=== PATIENT | male | born 1965 | race Caucasian/White ===

== ENCOUNTER 2025-09-23 18:39 | Emergency (ER) | payer OTHER, SELFPAY ==
--- OUTSIDE RECORDS SUMMARY | 2025-09-18 23:59 | XMS_ITS | Continuity of Care Document ---
Author Organization [facility] Address [address] [place] [address]- Care Team Providers Care Range Ecologist Name Role Phone Barbie JOHNS, Mendez Castillo Primary Care Physician [phone] Encounter [facility] [place] Date(s): 08/19/25 - 09/18/25 [facility] [address] [place] [address]- Encounter Type: Triage Allergies, Adverse Reactions, Alerts No Known Allergies Immunizations Given and Recorded Vaccine Date Status Refusal Reason SARS-CoV-2 (COVID-19) mRNA-1273 vaccine 10/14/21 R ecorded SARS-CoV-2 (COVID-19) Ad26 vaccine 03/19/21 Given tetanus/diphtheria/pertussis, acel(Tdap) 08/23/12 Given tetanus/diphtheria/pertussis, acel(Tdap) 06/14/10 Recorded Medications amLODIPine 5 mg oral tablet 1 tablet, By Mouth, Daily, # 90 tablet, 0 Refills, Maintenance, 07/12/25 6:23:00 PM EDT, [facility]/pharmacy #[id number], Please ask pt to keep scheduled appointment for any further refills., 172, cm, 05/09/24 11:08:00 EDT, Height Start Date: 07/12/25 Status: Ordered Medication Dispense Status: Completed Quantity: 90.0 Unit: tablet Total Allowed Fills: 1 Fills Dispensed: 0 atorvastatin 40 mg oral tablet 1 tablet, By Mouth, Daily, # 90 tablet, 0 Refills, Maintenance, 07/12/25 6:23:00 PM EDT, [facility]/pharmacy #[id number], Please ask pt to keep scheduled appointment for any further refills., 172, cm, 05/09/24 11:08:00 EDT, Height Start Date: 07/12/25 Status: Ordered Medication Dispense Status: Completed Quantity: 90.0 Unit: tablet Total Allowed Fills: 1 Fills Dispensed: 0 Freestyle Lite Test Strips See Instructions, # 600 each, Refills 5, Tot. Refills 5, Maintenance, Use as directed for Type 2 Diabetes Mellitus ICD 10 E1165 R73.9 Check Blood sugar Twice daily Length of need Lifetime Height 172cm Weight 260lbs, 10/12/23 10:31:00 AM EST, Supply, 172, cm, 10/12/23 10:15:00 EST, Height Start Date: 10/12/23 Stop Date: 04/04/25 Status: Ordered Medication Dispense Status: Completed Quantity: 600.0 Unit: each Total Allowed Fills: 6 Fills Dispensed: 0 Indications: Type 2 diabetes mellitus with hyperglycemia; hydrochlorothiazide 25 mg oral tablet 1, tablet, By Mouth, Daily, # 90 tablet, Refills 3, Maintenance, 09/10/25 12:13:00 AM EST, Route toPharmacy Electronically, [id number], 172, cm, 05/09/24 11:08:00 EDT, Height Start Date: 09/10/25 Status: Ordered Medication Dispense Status: Completed Quantity: 90.0 Unit: tablet Total Allowed Fills: 1 Fills Dispensed: 0 losartan 100 mg oral tablet 1 tablet = 100 mg, By Mouth, Daily, # 90 tablet, 1 Refills, Maintenance, 04/28/25 3:23:00 PM EDT, Tablet, [facility]/pharmacy #[id number], Partial fill upon patient request if the prescription is for a schedule II opioid drug. Dosage increase, 172, cm, 05/09/24 11:08:00 EDT, Height Start Date: 04/28/25 Status: Ordered Medication Dispense Status: Completed Quantity: 90.0 Unit: tablet Total Allowed Fills: 2 Fills Dispensed: 0 Indications: Essential (primary) hypertension; Ozempic (1 mg dose) 4 mg/3 mL subcutaneous solution See Instructions, INJECT 1 MG SUBCUTANEOUS INJECTION EVERY WEEK, INCREASE IN DOSE, # 3 Unknown, 5 Refills, Maintenance, 04/14/25 12:33:00 PM EDT, [id number], 172, cm, 05/09/24 11:08:00 EDT, Height Start Date: 04/14/25 Status: Ordered Medication Dispense Status: Completed Quantity: 3.0 Unit: Unknown Total Allowed Fills: 1 Fills Dispensed: 0 Problem List Condition Confirmation Course Effective Dates Status Health Status Informant Hypercholesteremia Confirmed Active Hyperglycemia Confirmed Active HTN (hypertension) Confirmed Active Severe obesity (BMI 35.0-39.9) with comorbidity Confirmed Active Type 2 diabetes mellitus Confirmed Active Social History Social History Type Response Smoking Status Never (less than 100 in lifetime) entered on: 04/10/23 Sex Sex Representation Male (finding) Patient Care team information Care Team Personnel Name: Mendez Valentin MD Position: [facility] Physician - Primary Care Member Role: PCP Address: [address] [place] [id number] Telecom: Care Team Related Persons Name: JESSE COLEMAN Insurance Providers Guarantor name: JESSICA MARTINEZ Health Plan Information #: 1 Payer: [employer] PPO Payer Identifier: SIMON Member Number: [id number] Group Number: [id number] Subscriber Identifier: NA Relationship to Subscriber: self Coverage Type: NA Coverage Verification Date: NA Telecom: NA Address:
--- NOTE | ~2025-09-23 | XR_ITS ---
CLINICAL HISTORY: pain s p pushing plow 3 view left shoulder Comparison: None provided Findings: No fractures or dislocations. No significant loss of joint space or osteophytes. No erosions. No radiopaque foreign body. Tiny curvilinear ossific density superior to the lateral humeral head which may be a small amount of calcific tendinopathy in the rotator cuff IMPRESSION: Question mild calcific tendinopathy of the rotator cuff. This document has been electronically signed by: Mike Pérez MD on 09/23/2025 20:07:53
--- NOTE | ~2025-09-23 | XR_ITS ---
CLINICAL HISTORY: L neck pain s p pushing plow 7 views cervical spine Comparison: None provided Findings: Normal alignment. No acute fractures or dislocation. Minimal degenerative changes of the cervical spine. No significant foraminal narrowing. At C5-6 there is mild disc height loss with anterior osteophyte formation. No prevertebral soft tissue swelling. IMPRESSION: No acute findings. This document has been electronically signed by: Mike Pérez MD on 09/23/2025 20:05:42
[2025-09-23 19:00] VITALS: BP 123/74; PULSE 102; RESP 18; TEMP 36.5; O2SAT 94; BMI 38.2
--- NOTE | 2025-09-23 19:01 | ED.GENADULT ---
HPI - General Adult General Chief complaint: Extremity Injury, Upper Stated complaint: hurt at work-Left shoulder Time Seen by Provider: 09/23/25 21:15 Source: patient Limitations: no limitations History of Present Illness ED Provider: Cassie Marsh PA-C HPI narrative: 60-year-old male presents with neck and left shoulder pain. 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 Patient has limited range of motion of the left shoulder. Denies fall or trauma. Denies weakness of upper extremity or paresthesia. Denies headache, dizziness, nausea vomiting. Related Data Previous Rx's ?Medication ?Instructions ?Recorded ketorolac 10 mg tablet 10 mg PO Q6H PRN pain #20 tabs 09/23/25 methocarbamol 750 mg tablet 1,500 mg (2 x 750 mg) PO Q8H PRN 09/23/25 pain, moderate #30 tabs prednisone 20 mg tablet 40 mg (2 x 20 mg) PO DAILY #8 tabs 09/23/25 Allergies Allergy/AdvReac Type Severity Reaction Status Date / Time No Known Drug Allergies Allergy Unknown UNKNOWN Verified 09/23/25 19:02 Review of Systems Review of Systems: Yes all other systems are reviewed and are negative Constitutional: Constitutional: Denies fatigue, Denies fever(s) and Denies headache(s) ENT: Denies dizziness, Denies headache(s) and Reports neck pain Cardiovascular: Cardiovascular: Denies chest pain and Denies dyspnea Respiratory: Respiratory: Denies dyspnea Gastrointestinal: Gastrointestinal: Denies nausea and Denies vomiting Musculoskeletal: Musculoskeletal: Denies back pain, Denies muscle weakness, Reports neck pain, Denies numbness, Denies radiating pain into limb and Denies tingling Neurologic: Denies dizziness, Denies headache(s), Denies numbness and Denies tingling Endocrine: Endocrine: Denies fatigue PMFSH Past Medical History Attestation statement: The following information was validated with the patient. Social History Social History Advance Directives: No Advance Directives Information Provided: No Physical Exam ED Vital Signs: Vital Signs - 24 hr 09/23/25 19:00 Temperature 97.7 F Pulse Rate 102 H Respiratory Rate 18 Blood Pressure 123/74 Pulse Oximetry 94 Oxygen Delivery Method Room Air BMI result Body Mass Index 38.2 Const Other: Alert well-appearing Orientation/consciousness: patient oriented x3 Neck Other: Pain elicited right side of the neck with range of motion Neck: Yes full ROM Resp Effort & Inspection: normal respiratory effort Cardio Other: Normal peripheral perfusion Skin Other: Warm dry no rash Neuro General: patient oriented x3, gait normal, no focal motor deficits and CN's II-XI intact bilaterally Extrem Other: Palpable pain within bicipital groove, full flexion and extension from the left elbow, limited straight arm raise secondary to pain Psych Other: Cooperative Course Course Course Narrative: This is a Rapid Medical Examination (RME) performed by Lucia Pérez PA-C in triage. Full HPI, ROS, assessment and treatment plan per primary provider in the Main ED. Hx: 60 yo M here for eval of L shoulder/neck/upper back pain which began while pushing a plow up onto a truck at work today around 1430. pain w/ abudction and extension of L shoulder. Plan: xrs Medical Decision Making Medical Decision Making [facility] Narrative: 60-year-old male presents with neck and left shoulder pain. 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 Patient has limited range of motion of the left shoulder. Denies fall or trauma. Denies weakness of upper extremity or paresthesia. Denies headache, dizziness, nausea vomiting. No chronic issues History: Per patient I have considered the following differential diagnoses: Fracture, dislocation, sprain, contusion, compression fracture, cervical radiculopathy , VAD Plan: X-rays of the cervical spine and left shoulder were obtained, there was no fracture or dislocation or compression fracture, the patient has a arthritic changes, we will treat him for musculoskeletal strain. He also has evidence of calcific tendinopathy, he does state he has a prior rotator cuff injury. We will treat accordingly. He is requesting a different contact for Orthopedics. Thought about VAD, however the patient does not been headache he is not dizzy, he is neurologically intact, no indication for CT scan of the brain. I have independently reviewed the following tests: X-ray left shoulder: Findings: No fractures or dislocations. No significant loss of joint space or osteophytes. No erosions. No radiopaque foreign body. Tiny curvilinear ossific density superior to the lateral humeral head which may be a small amount of calcific tendinopathy in the rotator cuff IMPRESSION: Question mild calcific tendinopathy of the rotator cuff. X-ray cervical spine:Findings: Normal alignment. No acute fractures or dislocation. Minimal degenerative changes of the cervical spine. No significant foraminal narrowing. At C5-6 there is mild disc height loss with anterior osteophyte formation. No prevertebral soft tissue swelling. IMPRESSION: No acute findings. Differential Diagnosis Differential Diagnoses: The differential diagnosis associated with the presentation includes See MDM Admission/Observation Consideration of admission/observation: Escalation of care including admission/observation considered Not applicable Radiology Impression Discussion of test interpretation with radiology: I have reviewed the radiologist's reading. Discharge Plan Discharge Clinical Impression: Right rotator cuff tendinitis Cervical strain, acute Qualifiers: Encounter type: initial encounter Qualified Code(s): S16.1XXA - Strain of muscle, fascia and tendon at neck level, initial encounter Osteoarthritis Qualifiers: Osteoarthritis location: multiple joints Osteoarthritis type: unspecified Qualified Code(s): M15.9 - Polyosteoarthritis, unspecified Patient Disposition: Home, Self-Care Instructions: Cervical Strain (ED), Rotator Cuff Tendinitis (ED), Osteoarthritis (ED), Calcific Tendinitis (ED) Additional Instructions: You were found to have calcific tendinitis of the rotator cuff of the left shoulder, with the associated arthritic changes. You also were found to have arthritic changes of the cervical spine. See home care instructions. Use the ketorolac as directed take it with food this is an anti-inflammatory. Take the steroid as directed this is a 2nd anti-inflammatory. Use the methocarbamol as needed, this is a muscle relaxant, this medication will cause drowsiness, do not drive or operate machinery while taking the medication. I am providing you with a contact for our orthopedic service. Prescriptions: New ketorolac 10 mg tablet 10 mg PO Q6H PRN (Reason: pain) Qty: 20 0RF Rx Instructions: maximum total duration of 5 days from all oral, intranasal, or parenteral formulations, patient received an intramuscular dose of Toradol here in the emergency room prednisone 20 mg tablet 40 mg PO DAILY Qty: 8 0RF methocarbamol 750 mg tablet 1,500 mg PO Q8H PRN (Reason: pain, moderate) Qty: 30 0RF Referrals: Hakeem Perry MD [Physician, Orthopedics] Referral Note: Left calcific tendinopathy rotator cuff Stand Alone Forms: Work/School Release Print Language: Kazakh
--- OUTSIDE RECORDS SUMMARY | 2025-09-23 21:50 | XMS_ITS ---
Author Name [facility] Organization Unknown History of Medication Use Medication Directions Dispensed Refills Start Date End Date Stat lidocaine (PF) 100 mg/5 mL (2 %) injection syringe Take 3 mL by injection route. 01/28/2025 active triamcinolone acetonide 40 mg/mL suspension for injection Take 60 mg by injection route. 01/28/2025 active lidocaine (PF) 100 mg/5 mL (2 %) injection syringe active triamcinolone acetonide 40 mg/mL suspension for injection active amlodipine 5 mg tablet TAKE 1 TABLET BY MOUTH EVERY DAY active atorvastatin 40 mg tablet TAKE 1 TABLET BY MOUTH EVERY DAY active hydrochlorothiazide 12.5 mg tablet TAKE 1 TABLET BY MOUTH EVERY DAY active hydrochlorothiazide 25 mg tablet TAKE 1 TABLET BY MOUTH EVERY DAY active losartan 100 mg tablet TAKE 1 TABLET BY MOUTH EVERY DAY active losartan 50 mg tablet TAKE 1 TABLET BY MOUTH EVERY DAY active metformin 500 mg tablet TAKE 2 TABLETS B Y MOUTH TWICE A DAY active Ozempic 0.25 mg or 0.5 mg (2 mg/3 mL) subcutaneous pen injector INJECT 0.25MG ONCE WEEKLY, ROTATE INJECTION SITES active Ozempic 1 mg/dose (4 mg/3 mL) subcutaneous pen injector INJECT 1 MG SUBCUTANEOUS INJECTION EVERY WEEK, INCREASE IN DOSE active Problems Problem Status Onset Date Problem Type Date of Resoluti on Source Non-traumatic partial tear of right rotator cuff active 2025-01-13 ProblemAct [facility] Pain of right shoulder joint active 2025-01-13 ProblemAct [facility] Encounters Encounter Type Encounter Reason Primary Diagnosis Location Date Ambulatory [facility] [place] 02/04/2025 Ambulatory [facility] [place] 01/13/2025 Ambulatory [facility] [place] 01/13/2025 Ambulatory [facility] [place] 12/03/2024 Ambulatory [facility] [place] 12/02/2024 Ambulatory [facility] [place] 12/02/2024 Ambulatory [facility] [place] 12/02/2024 [facility] [place] 12/02/2024 Ambulatory [facility] [place] 11/04/2024 Ambulatory [facility] [place] 11/04/2024
--- OUTSIDE RECORDS SUMMARY | 2025-09-23 21:50 | XMS_ITS | Clinical Summary ---
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 Active atorvastatin (LIPITOR) 40 mg tablet Take 1 tablet (40 mg total) by mouth 1 (one) time each day. Active hydroCHLOROthiaz tasneem (HYDRODIURIL) 25 mg tablet Take 1 tablet (25 mg total) by mouth 1 (one) time each day. Active losartan (COZAAR) 100 mg tablet Take 1 tablet (100 mg total) by mouth 1 (one) time each day. Active Active Problems Problem Noted Date Diagnosed Date Uncontrolled hypertension 09/11/2025 Encounters Date Type Department Care Team Description 09/17/2025 Telephone [facility] [address] [facility] [address] [place] [address] Jonathon De La Garza MD from Last 3 Months Medical History Medical History Date Comments Hypertension Hyperlipidemia Hyperglycemia Obesity, class 1 Type 2 diabetes mellitus (CMS/HCC V24, CMS/HCC V 28) Social History Tobacco Use Types Packs/Day Years Used Date Smoking Tobacco: Never Assessed Sex and Gender Information Value Date Recorded Sex Assigned at Not on file Legal Sex Male 11:39 AM EDT Gender Identity Not on file Sexual Orientation Not on file Obstetrics History Plan of Treatment Health Maintenance Due Date Last Done Comments Colorectal Cancer Screening: Colonoscopy 1967 DTaP,Tdap,and Td Vaccines (1 - Tdap) 1986 Hepatitis B Vaccines (1 of 3 - 19+ 3-dose series) 1986 Pneumococcal Vaccine: 50+ Ye ars (1 of 1 - PCV) 2017 Zoster Vaccines (1 of 2) 2017 Cholesterol Screening (Lipid Panel) 08/06/2024 HIV Screening 08/06/2024 Hepatitis C Screening 08/06/2024 Social Influencers of Health Screening 08/06/2024 Depression Screening 10/23/2024 COVID-19 Vaccine (1 - 2024-2 6 season) 2025 Influenza Vaccine (#1) 2025 Hypertension/CHF/CAD Annual BMP Blood Test 09/11/2025 RSV Immunization Adult Patie nts (1 - 1-dose 75+ series) 2042 HIB Vaccines Aged Out No longer eligi ble based on patient's age to complete this topic HPV Vaccines Aged Out No longer eligi ble based on patient's age to complete this topic Hepatitis A Vaccines Aged Out No long er eligible based on patient's age to complete this topic IPV Vaccines Aged Out No longer eligi ble based on patient's age to complete this topic MMR Vaccines Aged Out No longer eligi ble based on patient's age to complete this topic Meningococcal ACWY Vaccine Aged Out N o longer eligible based on patient's age to complete this topic Meningococcal B Vaccine Aged Out No l onger eligible based on patient's age to complete this topic RSV Immunization Patients Un norman 20 months Aged Out No longer eligible b ased on patient's age to complete this topic Varicella Vaccines Aged Out No longer eligible based on patient's age to complete this topic Insurance [employer] Care Teams Marshmallow Machine Worker Relationship Specialty Start Date End Date Mendez Valentin MD [address] [place] [id number] PCP - General 04/26/24
[2025-09-23 22:09] VITALS: BP 123/74; PULSE 102; RESP 18; TEMP 36.5; O2SAT 94
== END 2025-09-23 22:09 | disposition home or self-care (01) ==
PROVIDERS: Emergency Provider Emergency Medicine; PCP Family Medicine
DX: M70.822 Other soft tissue disorders related to use, overuse and pressure, left upper arm (principal); M25.512 Pain in left shoulder; M54.2 Cervicalgia; M19.09 Primary osteoarthritis, other specified site; X50.0XXA Overexertion from strenuous movement or load, initial encounter; Y93.L9 Activity, other outdoor activity; Y92.89 Other specified places as the place of occurrence of the external cause; Y99.0 Civilian activity done for income or pay; S16.1XXA Strain of muscle, fascia and tendon at neck level, initial encounter
CPT/HCPCS: 72050; 73030; 96372; 99283; 99284; J1885

== ENCOUNTER → 2025-09-23 19:03 | Outpatient (BNV) | payer OTHER, SELFPAY | PROVIDERS: PCP Family Medicine; Visit Provider Radiology Diagnostic Radiology | DX: M54.2 Cervicalgia (principal); M25.512 Pain in left shoulder | CPT/HCPCS: 72050; 73030 ==